=== PATIENT | male | born 1975 | race Caucasian/White ===

== ENCOUNTER 2025-06-17 12:16 | Emergency (ER) | payer OTHER, SELFPAY ==
[2025-06-17 12:20] VITALS: BP 146/107
[2025-06-17 12:57] LABS: Hematocrit 46.4 % (39.0-52.0); Hemoglobin 15.4 g/dL (13.0-18.0); Mean Corp Hgb Conc. 33.2 g/dL (33.0-37.0); Mean Corpuscular Volume 82.6 fL (80.0-94.0); Nucleated Red Blood Cells % 0 % (-); Platelet Count 260 10^3/uL (130-400); Red Cell Dist. Width 13.6 % (11.5-14.5)
[2025-06-17 13:19] LABS: ALT (SGPT) 35 U/L (0-50); AST (SGOT) 28 U/L (17-59); Albumin 4.1 g/dl (3.5-5.0); Alkaline Phosphatase 58 U/L (38-126); Blood Urea Nitrogen 30 mg/dl (9-20); Calcium 9.6 mg/dl (8.4-10.2); Carbon Dioxide 24 mmol/L (22-30); Chloride 106 mmol/L (98-107); Glucose 125 mg/dl (70-99); Potassium 4.3 mmol/L (3.5-5.1); Sodium 137 mmol/L (135-145); Total Protein 7.2 g/dl (6.3-8.2); eGFR > 60.00
--- NOTE | 2025-06-17 15:03 | ED.GENMED ---
History of Present Illness
<Temo Vázquez DO - Last Filed: 06/17/25 15:32>
General
Chief Complaint: Foreign Body Removal
Time Seen by Provider: 06/17/25 14:21
<Swati Pina [employer] - Last Filed: 06/17/25 17:26>
General
Source: patient
Exam Limitations: none
Nursing documentation reviewed up to this point in time: agreed with
History of Present Illness
History of Present Illness:
49-year-old male, presented with a piece of metal lodged in his left upper chest wall. 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 Went to an emergency room in [place],
[place]. During the emergency room visit, the patient had an X-ray which confirmed the presence of the metal, per pt, approximately two and a half to three inches in size. The patient reports that several doctors have evaluated his condition and
recommended removal due to the metal being coated with sludge. The patient did not report any additional symptoms like breathing difficulties or coughing up blood, fever, although he mentioned the area around the metal is tender.
Past History
<Temo Vázquez DO - Last Filed: 06/17/25 15:32>
Past History
ED Past Medical History: None
ED Past Surgical History: None
Social History
Tobacco: Non-smoker
Living: with family
Employment: Employed (construction)
Review of Systems
<Swati Pina, [employer] - Last Filed: 06/17/25 17:26>
Review of Systems
Allergies reviewed?: Yes
All Other Systems: ROS reviewed and negative except as documented in HPI and ROS
Constitutional: Denies fever
Respiratory: Denies hemoptysis or trouble breathing
Skin: Reports other (Foreign body embedded left upper chest wall.)
Phy Exam
<Swati Pina, [employer] - Last Filed: 06/17/25 17:26>
Physical Exam
Physical Exam:
GENERAL: No acute distress. A&Ox3.
CONSTITUTIONAL: Afebrile.
RESPIRATORY: Regular respirations, nonlabored, lungs clear.
CARDIOVASCULAR: Regular rate and rhythm, no murmurs, no rubs.
GI: Soft, nontender, normal BS
MUSCULOSKELETAL: Moves with ease. Well perfused.
SKIN: Warm, dry, pink. 1 cm healing laceration left upper pectoral area, surrounding skin is normal, no drainage, no sign of infection. No palpable foreign body
PSYCH: Normal mood and affect. Well kept, interactive and appropriate
NEUROLOGIC: Awake, alert and oriented. No focal neurological deficits
Course
<Temo Vázquez, DO - Last Filed: 06/17/25 15:32>
Orders/Labs/Results
Orders:
Orders
06/17/25 12:44
Complete Blood Count/With Diff Urgent
Comprehensive Metabolic Panel Urgent
06/17/25 15:01
CT Chest W/o Iv Contrast Urgent
Comment:
Reason For Exam: Foreign body (metal) (deep?) left upper chest wall
Abnormal Lab Results
06/17/25
12:44
MPV 10.7 H fL
(7.4-10.4)
Abs Immat Gran (auto) 0.1 H 10^3/uL
(0-0.05)
Absolute Monos (auto) 0.9 H 10^3/uL
(0.1-0.6)
Immature Gran % 0.8 H %
(0-0.5)
Monocytes % 10.7 H %
(1.7-9.3)
BUN 30 H mg/dl
(9-20)
Glucose 125 H mg/dl
(70-99)
06/17/25 12:44
06/17/25 12:44
Vital Signs
Initial and Last Documented VS:
Initial Vital Signs
Temp Pulse Pulse Ox
98.7 F 79 96
06/17/25 12:18 06/17/25 12:18 06/17/25 12:18
Last Documented Vital Signs
Temp Pulse Resp BP Pulse Ox
98.7 F 79 20 137/88 96
06/17/25 12:18 06/17/25 12:18 06/17/25 14:37 06/17/25 16:46 06/17/25 15:03
<Swati Pina, [employer] - Last Filed: 06/17/25 17:26>
Orders/Labs/Results
Orders:
Orders
06/17/25 12:44
Complete Blood Count/With Diff Urgent
Comprehensive Metabolic Panel Urgent
06/17/25 15:01
CT Chest W/o Iv Contrast Urgent
Comment:
Reason For Exam: Foreign body (metal) (deep?) left upper chest wall
Abnormal Lab Results
06/17/25
12:44
MPV 10.7 H fL
(7.4-10.4)
Abs Immat Gran (auto) 0.1 H 10^3/uL
(0-0.05)
Absolute Monos (auto) 0.9 H 10^3/uL
(0.1-0.6)
Immature Gran % 0.8 H %
(0-0.5)
Monocytes % 10.7 H %
(1.7-9.3)
BUN 30 H mg/dl
(9-20)
Glucose 125 H mg/dl
(70-99)
06/17/25 12:44
06/17/25 12:44
Vital Signs
Initial and Last Documented VS:
Initial Vital Signs
Temp Pulse Pulse Ox
98.7 F 79 96
06/17/25 12:18 06/17/25 12:18 06/17/25 12:18
Last Documented Vital Signs
Temp Pulse Resp BP Pulse Ox
98.7 F 79 20 137/88 96
06/17/25 12:18 06/17/25 12:18 06/17/25 14:37 06/17/25 16:46 06/17/25 15:03
<Swati Pina, [employer] - Last Filed: 06/17/25 17:26>
MDM/Problems Addressed
MDM/Problems Addressed:
49-year-old male, presented with a piece of metal lodged in his left upper chest wall. 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 Went to an emergency room in [place],
[place]. During the emergency room visit, the patient had an X-ray which confirmed the presence of the metal, per pt, approximately two and a half to three inches in size. The patient reports that several doctors have evaluated his condition and
recommended removal due to the metal being coated with sludge. The patient did not report any additional symptoms like breathing difficulties or coughing up blood, fever, although he mentioned the area around the metal is tender.
No sign of cellulitis or infection
CBC, CMP normal
Case discussed with Dr. Vázquez who examined patient, requested CAT scan to check the depth of the foreign body.
Consulted general surgeon Dr. Acevedo who looked at the chest CT and recommends not removing it
Patient tells me he is taking amoxicillin, instructed to continue to finish that. Informed him that the surgeon recommends not removing the foreign body.
I gave him information for the cardiothoracic surgeon to contact for opinion if he feels strongly that he wants the foreign body removed.
<Temo Vázquez, - Last Filed: 06/17/25 15:32>
*Pulse Oximetry
SaO2: 96
Oxygen Mode of Delivery: Room air
<Swati Pina, [employer] - Last Filed: 06/17/25 17:26>
*Pulse Oximetry
Patient hypoxic: no
*Critical Care Note
Total Time (30-74mins, 75-104mins- exclusive of procedures): Not Applicable
ED Attending Note
<Temo Vázquez DO - Last Filed: 06/17/25 15:32>
ED Attending Note
Patient seen and examined by attending physician: Yes
I performed the substantive portion of visit, reviewed & personally made and approve the management plan that is documented in note by myself or ROB.: Yes
ED Attending Note:
Seen with [facility] examined independently chest wall foreign body doing some work in [place] on exam he is nontoxic has a 0.4 cm wound to his left chest we will get a CT scan to rule significant pneumothorax etc. consideration for attempting to remove it
under local anesthetic
-
Portions of this chart may have been created with voice recognition software.� Occasional wrong word or��sound alike� substitutions may have occurred due to the inherent limitations of voice recognition software.
Discharge Plan
Departure
Patient Disposition: Home (Routine Discharge)
Date of Disposition: 06/17/25
Time of Disposition: 16:42
Patient with high blood pressure during this ER visit?: No
Condition: Good
Discharge Problem:
Foreign body of chest wall
Instructions: Foreign Body in Skin (DC)
Prescriptions:
No Action
sulfamethoxazole-trimethoprim 800 MG/160 MG tablet
1 tab PO BID Qty: 14 0RF
sulfamethoxazole-trimethoprim 1 TABLET tablet
1 tab PO BID Qty: 14 1RF
oxycodone-acetaminophen [Percocet] 1 EACH tablet
1 ea PO Q6HPRN PRN (Reason: pain) Qty: 10 0RF
Referrals:
Wil Gore DO [Family Provider, Family Practice] - As needed
Mckinley Urrutia MD [Active, Cardiac Surgery] - As needed
Activity Restrictions/Additional Instructions:
As we discussed, continue your antibiotic.
This area should heal and be less tender in the next 2 weeks.
Our general surgeon recommends NOT removing it.
I have provided you with the name of a cardiothoracic surgeon you may consult to see if he would recommend removal. Ibuprofen as needed for pain.
Seek medical care immediately for signs of infection which may include increasing swelling, pain, pus drainage, fever, nausea/vomiting, chills or feeling sicker in any way.
Remember you have metal in your body so if you ever need MRI, be sure to inform them as you should not have one.
Interventions
Interventions:
*Risk Screen - Suicide Last Done: 06/17/25 12:23
*General Assessment Last Done: 06/17/25 16:54
*Neglect/Abuse Screening Last Done: 06/17/25 16:54
*ED- Fall Risk Assessment Last Done: 06/17/25 16:54
*ED COVID-19 Vaccine History Last Done: 06/17/25 16:54
*Nursing Disposition Last Done: 06/17/25 16:56
Discharge Date and Time
Discharge Date/Time: 06/17/25 16:57
Print Language: SLOVENIAN
[2025-06-17 16:46] VITALS: BP 137/88
== END 2025-06-17 16:57 | disposition home or self-care (01) ==
LOC: EMR 12:16
PROVIDERS: Emergency Medicine; EMERGENCY PHYSICIAN Emergency Medicine; FAMILY PHYSICIAN Family Medicine
DX: S21.122A Laceration with foreign body of left front wall of thorax without penetration into thoracic cavity, initial encounter (principal); W20.8XXA Other cause of strike by thrown, projected or falling object, initial encounter
CPT/HCPCS: 99284; 71250; 80053; 85025